=== PATIENT | female | born 1950 | race Caucasian/White ===

== ENCOUNTER → 2018-01-26 | Day surgery (SDC) | payer OTHER ==
--- NOTE | 2018-01-29 23:30 | OP ---
DATE OF OPERATION: 01/26/2018 PREOPERATIVE DIAGNOSIS: Left breast mass, 4 o'clock, 4 cm from the nipple. POSTOPERATIVE DIAGNOSIS: Left breast mass, 4 o'clock, 4 cm from the nipple. PROCEDURE: Left ultrasound guided core biopsy with clip placement. ANESTHESIA: Local. ATTENDING SURGEON: Larry Jean-Baptiste M.D. ESTIMATED BLOOD LOSS: Minimal. COMPLICATIONS: None. DESCRIPTION OF PROCEDURE: Patient was made aware of the risks and benefits of the procedure and consented. She was placed in supine position. Then under sterile conditions with 1% lidocaine for local anesthesia, a small juan carlos was made in the skin; using a 10 gauge suction biopsy device, via lateral approach, under ultrasound guidance multiple cores were obtained and submitted to pathology. Likewise under ultrasound guidance a U-shaped clip was placed into the biopsy region. Well tolerated by the patient. Steri-Strips and a sterile bandage were applied. Will contact her with results. LARRY JEAN-BAPTISTE M.D. [id number]
== END | disposition home or self-care (01) ==
LOC: FRADUS-SUR 12:06
PROVIDERS: ATTEND Surgery Surgical Oncology
PROC: 0HBU3ZX Excision of Left Breast, Percutaneous Approach, Diagnostic (ICD-10-PCS; principal; 2018-01-26)
DX: D48.62 Neoplasm of uncertain behavior of left breast (principal)
CPT/HCPCS: 19083; 87899; 88305-TC; 88342-TC; A4648

== ENCOUNTER 2018-03-06 06:58 | Day surgery (SDC) | payer OTHER ==
[2018-02-26 13:39] VITALS: BMI 33.9
--- NOTE | 2018-02-28 10:53 | HP ---
Admitting History and Physical - Primary Care Physician PCP: Larry Jean-Baptiste - Admission Chief Complaint: Left breast cancer History of Present Illness: 67 year old postmenapausal female who underwent right breast wide excision 2004 for a 1.3 cm ER/ND+ HER2- invasive lobular carcinoma ERBT and arimidex for 7 years. Chek 2 positive, initially was classified as a VUS . mammogram 05/2017 negative. Breast MRI 12/2017 showed 2 suspicious masses left breast lower outer quadrant 3 and 4 mm. seen on US. Left breast US core biopsy 01/2018 at 4:00 showed invasive ductal carcinoma and DCIS ER+/ND+ Her2 -. - Past Medical History Cardiovascular: Yes: HTN, Hyperlipdemia Gastrointestinal: Yes: GERD Psych: Yes: Anxiety - Past Surgical History Past Surgical History: Yes: Cholecystectomy (1970), Joint Replacement (hip replacement 2013) Additional Past Surgical History: right breast wide excision 2004 invsive lobular ca RT and arimidex x 7 yrsLung bx 2010 granulomas discectomy 2012 - Advance Directives Advance Directives: Yes: Living Will, Health Care Proxy - Smoking History Smoking history: Former smoker Have you smoked in the past 12 months: Yes If you are a former smoker, when did you quit?: 2008 - Alcohol/Substance Use Hx Alcohol Use: Yes (SOCIALLY) Home Medications - Allergies Allergies/Adverse Reactions: Allergies Allergy/AdvReac Type Severity Reaction Status Date / Time No Known Drug Allergies Allergy Verified 02/26/18 13:17 - Home Medications Home Medications: Ambulatory Orders Alprazolam [Xanax] 0.5 mg PO DAILY PRN 02/26/18 Metoprolol Succinate [Toprol Xl] 25 mg PO DAILY 02/26/18 Rosuvastatin Calcium [Crestor] 5 mg PO DAILY 02/26/18 Triamterene/Hydrochlorothiazid [Triamterene-Hctz 37.5-25 mg Cp] 1 each PO DAILY 02/26/18 Family Disease History - Family Disease History Family Disease History: CA: Father (prostate ca 65), Mother (breast ca/ pancreatic ca 74 and 85) Other Family History: mat aunt CRC 80 Physical Examination Constitutional: Yes: Well Nourished Breast(s): Yes: Other (Healed incision right breast, diffusely nodular, no palapble masses or adenopathy bilaterally, post bx changes left breast) Assessment/Plan Left breast wide excision , mamogram needle localization, sentenel node biopsy , lymphoscintogram, possible axillary node dissection
[2018-03-06] MEDS ORDERED: ONDANSETRON 4 MG/2 ML VIAL IVPUSH PRN ×2 (12:37→14:55)
[2018-03-06] MEDS ORDERED: LACTATED RINGERS SOLUTION 1,000 ML IV SCH (12:45)
[2018-03-06] MEDS ORDERED: ACETAMINOPHEN 1000 MG/100 ML VIAL (NON FORMULARY) IVPB SCH (12:45)
[2018-03-06] MEDS ORDERED: ISOSULFAN BLUE 10 MG/ML VIAL SQ ONE (13:41)
[2018-03-06] MEDS ORDERED: KETOROLAC TROMETHAMINE 30 MG/1 ML VIAL IVPUSH PRN (14:55)
[2018-03-06] MEDS ORDERED: DEXTROSE 5%-0.45% SALINE 1,000 ML IV SCH (15:00)
[2018-03-06] MEDS ORDERED: PROMETHAZINE HCL 25 MG/1 ML VIAL ONE (15:27)
--- NOTE | 2018-03-06 15:27 | OP ---
Operative Note - Note: Operative Date: 03/06/18 Pre-Operative Diagnosis: Left breast cancer Operation: Left breast reconstruction with local tissue relocation Post-Operative Diagnosis: Same as Pre-op Surgeon: Lukas Gaytan Spice Room Worker: Paresh Hook Anesthesia: General Estimated Blood Loss (mls): 10 Operative Report Dictated: Yes
--- NOTE | 2018-03-06 15:28 | SURG ---
Surgery Radiology Asst Note Radiology Asst: Paresh Hook PA-C Date of Service: 03/06/18 Diagnosis: Left breast cancer Procedure: Left breast reconstruction with local tissue relocation s/p wide excision needle localization I was present for the entirety of the operative procedure. For further detail, please refer to operative report. Visit type - Case Type Case Type: Scheduled - Emergency Emergency Visit: No - New patient This patient is new to me today: Yes Date on this admission: 03/06/18
[2018-03-06] MEDS: PROMETHAZINE HCL 25 MG/1 ML VIAL IVPUSH PRN ×2 (15:30→15:45)
[2018-03-06] MEDS ORDERED: HALOPERIDOL LACTATE 5 MG/ML ONE (16:08)
[2018-03-06] MEDS ORDERED: ACETAMINOPHEN INJECTION 100 ML IVPB ONE (16:22)
[2018-03-06] MEDS ORDERED: HALOPERIDOL LACTATE 5 MG/ML IVPUSH ONE (17:18)
[2018-03-06 18:35] VITALS: BP 105/52; PULSE 84; TEMP 98
--- NOTE | 2018-03-06 19:08 | OP ---
DATE OF OPERATION: 03/06/2018 TITLE OF PROCEDURE: 1. Left-sided partial breast reconstruction with local tissue flaps. 2. A 4-cm complex, left axillary wound closure. PREOPERATIVE DIAGNOSIS: Left-sided breast cancer status post left partial mastectomy and left sentinel lymph node biopsy. POSTOPERATIVE DIAGNOSIS: Left-sided breast cancer status post left partial mastectomy and left sentinel lymph node biopsy. Procedures performed in combination with a left partial mastectomy performed by Dr. Larry Jean-Baptiste. That portion will be dictated separately by Dr. Larry Jean-Baptiste. The patient is marked in the holding area in preparation for a lumpectomy. The lumpectomy markings are made along the same markings that would be used for a modified Ramon-type pattern breast reduction should conversion at this stage or at a later stage be necessary. Patient is awake and aware of all incisions and resulting scars. The patient is brought to the operating room, given 2 g of Ancef, prepped and draped in standard surgical fashion. She is positioned by Dr. Jean-Baptiste and his team. At this point, the left sentinel lymph node biopsy and left partial mastectomy are performed by Dr. Jean-Baptiste, dictated separately by Dr. Jean-Baptiste. I was the corporate administrative assistant for these procedures. At the completion of this, decision is made that the defect left behind by Dr. Jean-Baptiste did not require conversion to a breast reduction pattern, and the defect did, however, undermine inferolaterally under the nipple areola, making a later inferior or lateral pedicle impossible. Any later attempts at mastopexy would require a superior or medial pedicle or superomedial pedicle. The defect if left alone, however, would be deforming, and therefore, parenchymal flap reconstruction is required. Hemostasis meticulously achieved and the wounds are copiously irrigated with normal saline. At this point, the existing defect is clipped in each of its 4 boundaries in case a return to the OR is necessary for further margins. A laterally-based parenchymal flap is then mobilized on a deep and lateral blood supply so as not to further encroach upon the preserved tissue for a medial or superior pedicle. This is able to be mobilized into the wound without distortion of the surrounding breast tissue. This parenchymal flap is secured to the surrounding tissue, leaving the orienting clips in place. This securing is done with a series of interrupted 3-0 Vicryl suture, closing the space. The skin is then slightly undermined laterally to prevent puckering, and the dermis is closed with a series of interrupted, buried, deep dermal 3-0 Monocryl suture, followed by a running subcuticular 3-0 Monocryl suture. Patient is brought to a seated upright position to assure the symmetry of the breast and that there is no significant distortion. These criteria are met. Attention is then directed toward the left axillary wound. Hemostasis is meticulously achieved, followed by closure of the axillary fascia with a series of interrupted 3-0 Vicryl suture. Deep fat is closed, approximating the space with a series of interrupted 3-0 Vicryl suture. The skin is then closed with a series of interrupted, buried, deep dermal 3-0 Monocryl suture, followed by a running subcuticular 3-0 Monocryl suture. All tissues are pink and viable at the end of the procedure. Dressings are applied with Steri-Strips, 4 x 4, and Hypafix gauze. Patient is given a surgical bra, is awoken from anesthesia, transferred to recovery without complication. Rachel [id number]
--- NOTE | 2018-03-06 19:20 | OP ---
DATE OF OPERATION: 03/06/2018 PREOPERATIVE DIAGNOSIS: Left breast cancer. POSTOPERATIVE DIAGNOSIS: Left breast cancer. PROCEDURE: Left breast partial mastectomy with sentinel lymph node biopsy. ANESTHESIA: General intubated. ATTENDING SURGEON: Larry Jean-Baptiste MD ESTIMATED BLOOD LOSS: Minimal. COMPLICATIONS: None. DESCRIPTION OF PROCEDURE: Patient was made aware of the risks and benefits of the procedure and consented. Preoperatively, she went to the radiology suite where a needle was placed next to the index lesion and then to nuclear medicine where radioactive tracer was injected into the peritumoral tissues and skin. She was then placed in the supine position on the operating room table, and after general anesthesia was induced, the patient was intubated. The operative site was prepped and draped in usual sterile fashion. Next, 2.5 mL of 1% isosulfan blue was infiltrated into peritumoral tissues. Waiting approximately 10 minutes with gentle manual compression, a curvilinear incision was made in the left axilla. Using blunt and sharp dissection, tissues were dissected down to the axillary fat where it was identified a cluster of hot lymph nodes which were surgically excised and submitted to pathology. Palpation of the rest of the axilla and interrogation with the Neoprobe showed that there were no other suspicious or hot areas. The breast was then approached. The radial incision was then made using electrocautery. Thick skin flaps were made. The needle was drawn to the puncture site and wire to the wound. Tissues around the wire were then sharply excised and submitted with a short suture superior, long suture lateral. Specimen radiograph confirmed the presence of the index lesion. Additional segments were taken deep anterior, medial, lateral, superior, and inferior with clips and new margins. The wound was copiously irrigated with normal saline. Hemostasis maintained by electrocautery. The procedure was then turned over to Lukas Gaytan MD, the plastic surgeon, for closure of the wounds. He will dictate his portion of the procedure. LARRY JEAN-BAPTISTE M.D. [id number]
--- NOTE | 2018-03-12 13:38 | PATH ---
Surgical Pathology Report Patient Name: TIFFANIE CORTES [facility]. Rec. #: [id number] /Age/Gender: 1950 (Age: 67) / F Account: [id number] Location: [facility] AMBULATORY Taken: 03/06/2018 Received: 03/06/2018 Reported: 03/12/2018 Physicians: Larry Jean-Baptiste M.D. Specimen(s) Received A: LEFT AXILLARY SENTINEL NODE B: LEFT BREAST WIDE EXCISION C: LEFT BREAST SUPERIOR MARGIN D: LEFT BREAST INFERIOR MARGIN E: LEFT BREAST ANTERIOR MARGIN F: LEFT BREAST POSTERIOR MNARGIN G: LEFT BREAST MEDIAL MARGIN H: BREAST LATERAL MARGIN Clinical History Invasive carcinoma Final Diagnosis A. lymph node, left axillary sentinel, excision: Two lymph nodes, negative for metastatic carcinoma (0/2). B. breast, left, wide excision: Invasive ductal carcinoma, well differentiated (tubule score: 1/3, nuclear grade: 2/3, mitotic score 1/3; total score 4/9, Toribio grade 1). Invasive carcinoma measures 4 mm in greatest dimension, microscopically. FOCAL DUCTAL CARCINOMA IN SITU (DCIS), CRIBRIFORM TYPE, LOW NUCLEAR GRADE. Invasive carcinoma is focally close to (< 1 MM) THE SUPERIOR MARGIN AND AT 1 MM FROM THE DEEP MARGIN; DCIS IS AT 2 MM FROM THE DEEP MARGIN. SEE SPECIMENS C-H FOR FINAL MARGINS. NO LYMPHOVASCULAR INVASION IS IDENTIFIED. REMAINING BREAST TISSUE SHOWS ATYPICAL DUCTAL HYPERPLASIA (ADH), FLAT EPITHELIAL ATYPIA (FEA) AND FIBROCYSTIC CHANGES. PRIOR BIOPSY SITE CHANGES ARE PRESENT. PATHOLOGIC STAGE (pTNM): pT1a pN0. SEE ALSO INVASIVE CARCINOMA CASE SUMMARY BELOW. C. breast, left, superior margin, excision: Benign breast tissue. D. breast, left, inferior margin, excision: Ductal carcinoma in situ (DCIS), solid type, low NUCLEAR grade, focally at 1 mm from the new margin. DCIS is present in one oF tHREE slides (1/3). E. breast, left, anterior margin, excision: Benign breast tissue. F. breast, left, posterior margin excision: Right breast tissue. G. breast, left, medial margin, excision: dcis, MICROPAPILLARY TYPE, LOW NUCLEAR, PRESENT IN ONE OF FOUR SLIDES (1/4). DCIS IS FOCALLY CLOSE TO (<1 MM) the NEW MARGIN. H. breast, left, lateral margin, excision: Benign breast tissue. Comments Breast Invasive Carcinoma: Surgical Pathology Case Summary (Based on AJCC TNM 8 th edition) Procedure _X_ Excision (less than total mastectomy) Specimen Laterality _X_ Left Tumor Size _X_ Greatest dimension of largest invasive focus >1 mm (millimeters): 4 mm Histologic Type _X_ Invasive carcinoma of no special type (ductal, not otherwise specified) Histologic Grade (Toribio Histologic Score) Glandular (Acinar)/Tubular Differentiation _X_ Score 1 (>75% of tumor area forming glandular/tubular structures) Nuclear Pleomorphism _X_ Score 2 Mitotic Rate _X_ Score 1 Overall Grade _X_ Grade 1 (scores of 3, 4, or 5) Tumor Focality _X_ Single focus of invasive carcinoma Ductal Carcinoma In Situ (DCIS) _X_ DCIS is present in specimen _X_ Negative for extensive intraductal component (EIC) Margins Invasive Carcinoma Margins _X_ Uninvolved by invasive carcinoma Distance from closest margin (millimeters): < 1 mm from superior margin in wide excision B; final superior margin C is negative for carcinoma. DCIS Margins _X_ Uninvolved by DCIS Distance from closest margin (millimeters): focally < 1 mm from final medial margin G. Regional Lymph Nodes Number of Lymph Nodes with Macrometastases (>2 mm): 0 Number of Lymph Nodes with Micrometastases (>0.2 mm to 2 mm and/or >200 cells):0 Number of Lymph Nodes with Isolated Tumor Cells (=0.2 mm and =200 cells): 0 Number of Lymph Nodes Examined: 2 Number of [place] Nodes Examined :2 Treatment Effect _X_ No known presurgical therapy Lymphovascular Invasion _X_ Not identified Pathologic Stage Classification (pTNM, AJCC 8th Edition) Primary Tumor (Invasive Carcinoma) (pT) _X_ pT1a: Tumor >1 mm but =5 mm in greatest dimension (round any measurement >1.0-1.9mm to 2 mm) Regional Lymph Nodes (pN) Category (pN) _X_ pN0 (i+): ITCs only (malignant cell clusters no larger than 0.2 mm) in regional lymph node(s) Biomarker Studies Results of ER and UT studies performed on prior biopsy ([id number]) at [facility] are as follows: ER (clone [id number] mouse monoclonal antibody by [employer]): 100 % nuclear staining with strong intensity (Positive). UT (clone16 mouse monoclonal antibody by [employer]): > 90 % nuclear staining with strong intensity (Positive). Results of Her2 (IHC) & Ki-67 studies performed on prior biopsy ([id number]) at [place], [place] ([id number]) are as follows: Her2 IHC (EP3 from [employer], formerly known as [id number], using [employer] Polymer Refine detection kit):0 Ki67: < 5% (Low proliferative index). Electronically Signed Clarissa Delatorre M.D. Gross Description A. Received in formalin labeled "left axillary sentinel lymph node," are 2 lane lymph nodes measuring 1.6 and 2.4 cm in greatest dimension. Each lymph node is bisected and the specimen is entirely submitted in 3 cassettes as follows: 1-one bisected lymph node; 2-3-one bisected lymph node. B. Received in formalin, labeled "left breast wide excision," is a 4.2 x 3.0 [address] 2[address] lane-yellow, irregular, portion of fibroadipose tissue with a needle localization wire present. There is a short suture marking the superior aspect and a long suture marking the lateral aspect, per the surgeon. There is no skin present. The specimen is inked as follows: superior and lateral blue; inferior green; medial yellow; anterior red; posterior black. The specimen is serially sectioned from medial to lateral. Sectioning reveals a 0.6 x 0.6 x 0.5 cm ill-defined, indurated mass abutting the superior margin. The mass is 0.6 cm from the anterior margin. Hand Zipper Trimmer sections are submitted in 6 cassettes as follows: [id number] and sequentially submitted mass (each with superior, anterior and posterior margins); 4-inferior margin; 5-medial margin; 6-lateral margin. Time to formalin fixation: 17 minutes Total formalin fixation time: Approximately 27 hours. C. Received in formalin labeled "left breast superior margin," is a 3.5 x 1.9 x 1.0 cm portion of fibroadipose tissue with an undesignated clip presumably marking the new margin. The presumed new margin is inked blue and the specimen is serially sectioned. The specimen is entirely submitted in 3 cassettes. D. Received in formalin labeled "left breast inferior margin," is a 2.8 x 2.5 x 0.9 cm portion of fibroadipose tissue with an undesignated clip presumably marking the new margin. The presumed new margin is inked blue and the specimen is serially sectioned. The specimen is entirely submitted in 3 cassettes. E. Received in formalin labeled "left breast anterior margin," is a 1.8 x 1.8 x 0.5 cm portion of fibroadipose tissue with an undesignated clip presumably marking the new margin. The presumed new margin is inked blue and the specimen is serially sectioned. The specimen is entirely submitted in 3 cassettes. F. Received in formalin labeled "left breast posterior margin," is a 4.0 x 3.3 x 1.6 cm portion of fibroadipose tissue with an undesignated clip presumably marking the new margin. The presumed new margin is inked blue and the specimen is serially sectioned. The specimen is entirely submitted in 7 cassettes. G. Received in formalin labeled "left breast medial margin," is a 3.3 x 2.3 x 0.8 cm portion of fibroadipose tissue with an undesignated clip presumably marking the new margin. The presumed new margin is inked blue and the specimen is serially sectioned. The specimen is entirely submitted in 4 cassettes. H. Received in formalin labeled "left breast lateral margin," is a 3.5 x 2.5 x 0.6 cm portion of fibroadipose tissue with an undesignated clip presumably marking the new margin. The presumed new margin is inked blue and the specimen is serially sectioned. The specimen is entirely submitted in 3 cassettes. DL03/07/2018 saudi03/07/2018
== END 2018-03-06 18:38 | disposition home or self-care (01) ==
LOC: FASU 06:58
PROVIDERS: ATTEND Surgery Surgical Oncology
PROC: 0HBU0ZZ Excision of Left Breast, Open Approach (ICD-10-PCS; principal; 2018-03-06 14:01)
PROC: 0HRU07Z Replacement of Left Breast with Autologous Tissue Substitute, Open Approach (ICD-10-PCS; 2018-03-06 14:01)
DX: C50.812 Malignant neoplasm of overlapping sites of left female breast (principal); N64.9 Disorder of breast, unspecified
CPT/HCPCS: 19281; 78195-TC; 88307-TC; 94760; A9541; J0131

== ENCOUNTER 2018-03-27 11:50 | Day surgery (SDC) | payer OTHER ==
[2018-03-20 13:00] VITALS: BMI 33.9
--- NOTE | 2018-03-22 09:03 | HP ---
Admitting History and Physical - Primary Care Physician PCP: Larry Jean-Baptiste - Admission Chief Complaint: Left breast cancer History of Present Illness: 67 year old with H/O right wide excision 2004 for invasive lobular carcinoma EBRT and arimidex for 7 years. She also is S/P laparoscopic colectomy for early stage colon cancer CHEK2 mutation who recently underwentLeft breast wide excision on 03/06/2018 for a 4mm Invasive ductal carcinoma with close inferior and medial margins. negative sentenel node biopsy. Her for left breast reexcision. History Source: Patient Limitations to Obtaining History: No Limitations - Past Medical History Cardiovascular: Yes: HTN, Hyperlipdemia Gastrointestinal: Yes: GERD Psych: Yes: Anxiety - Past Surgical History Past Surgical History: Yes: Cholecystectomy (1970), Colectomy (lap colectomy for early stage colon cancer Right breast wide excision invasive lobular ca lung bx garnuloma), Joint Replacement (hip replacement 2013) - Smoking History Smoking history: Former smoker Have you smoked in the past 12 months: Yes If you are a former smoker, when did you quit?: 2007 - Alcohol/Substance Use Hx Alcohol Use: Yes (SOCIALLY) Home Medications - Allergies Allergies/Adverse Reactions: Allergies Allergy/AdvReac Type Severity Reaction Status Date / Time No Known Drug Allergies Allergy Verified 03/20/18 12:53 - Home Medications Home Medications: Ambulatory Orders Alprazolam [Xanax] 0.5 mg PO DAILY PRN 02/26/18 Metoprolol Succinate [Toprol Xl] 25 mg PO DAILY 02/26/18 Rosuvastatin Calcium [Crestor] 5 mg PO DAILY 02/26/18 Triamterene/Hydrochlorothiazid [Triamterene-Hctz 37.5-25 mg Cp] 1 each PO DAILY 02/26/18 Oxycodone HCl/Acetaminophen [Percocet 5-325 mg Tablet -] 1 - 2 tab PO Q6H #20 tablet MDD 6 03/06/18 Family Disease History - Family Disease History Family Disease History: CA: Father (prostate ca 65), Mother (breast ca/ pancreatic ca 74 and 85) Other Family History: mat aunt CRC 80 Physical Examination Constitutional: Yes: Well Nourished Breast(s): Yes: Other (Left breat healing well incicion intact no signs of infection) Problem List - Problems (1) Breast cancer, left breast Code(s): C50.912 - MALIGNANT NEOPLASM OF UNSPECIFIED SITE OF LEFT FEMALE BREAST Qualifiers: Breast location: lower outer quadrant of breast Estrogen receptor status: positive Patient sex: female Qualified Code(s): C50.512 - Malignant neoplasm of lower-outer quadrant of left female breast; Z17.0 - Estrogen receptor positive status [ER+] Assessment/Plan Left breast re excision for positive margins
[2018-03-27] MEDS ORDERED: LIDOCAINE HCL 1%, 10 MG/ML (20ML VIAL) ONE (14:25)
[2018-03-27] MEDS ORDERED: ONDANSETRON 4 MG/2 ML VIAL IVPUSH PRN ×2 (17:02→18:20)
[2018-03-27] MEDS ORDERED: KETOROLAC TROMETHAMINE 30 MG/1 ML VIAL IVPUSH PRN (17:02)
[2018-03-27] MEDS ORDERED: PROPOFOL 20 ML ONE ×6 (17:15→17:19)
[2018-03-27] MEDS ORDERED: MIDAZOLAM HCL 2 MG/2 ML SINGLE DOSE VIAL ONE (17:15)
[2018-03-27] MEDS ORDERED: DEXTROSE 5%-0.45% SALINE 1,000 ML IV SCH (17:15)
[2018-03-27] MEDS ORDERED: SUCCINYLCHOLINE CHLORIDE 200 MG/10 ML VIAL ONE (17:15)
[2018-03-27] MEDS ORDERED: ePHEDrine SULFATE 50 MG/1 ML AMPULE ONE (17:20)
[2018-03-27] MEDS ORDERED: oxyCODONE HCL 5 MG TABLET PO PRN ×2 (18:20)
[2018-03-27] MEDS ORDERED: ACETAMINOPHEN 325 MG TABLET (FP) PO PRN (18:20)
[2018-03-27] MEDS ORDERED: PROMETHAZINE HCL 25 MG/1 ML VIAL IVPB PRN (18:20)
[2018-03-27] MEDS ORDERED: ACETAMINOPHEN 325 MG TABLET (FP) PO ONE (18:30)
--- NOTE | 2018-03-27 19:14 | OP ---
DATE OF OPERATION: 03/27/2018 PREOPERATIVE DIAGNOSIS: Left breast cancer with positive/close inferior and medial margin. POSTOPERATIVE DIAGNOSIS: Left breast cancer with positive/close inferior and medial margin. PROCEDURE: Left breast reexcision. ANESTHESIA: General intubated. ATTENDING SURGEON: Larry Jean-Baptiste M.D. FURNACE MECHANIC HELPER: Uriel Carpenter ESTIMATED BLOOD LOSS: Minimal. COMPLICATIONS: None. DESCRIPTION OF PROCEDURE: Patient was made aware of the risks and benefits of the procedure and consented. She was placed in a supine position. After general anesthesia was induced, the patient was intubated. The operative site was prepped and draped in the usual sterile fashion. A prior incision was opened up, releasing the prior sutures revealing an inflammatory seroma cavity in the inferior wall was grasped and sharply excised a 2-cm thick wall and a clip was applied to the new margin, and the specimen was submitted as inferior segment the clip at the new margin. Likewise, medially, a piece of the wall was grasped and sharply excised and submitted as medial segment with the clip at the new margin. Wound was copiously irrigated with normal saline, hemostasis maintained by electrocautery. The wound was then closed with deep 2-0 Vicryl [id number] sutures as well as interrupted 3-0 Vicryl followed by running subcuticular 4-0 Monocryl. Steri-Strips, sterile dressing, and a compression bra were then applied, and the patient having tolerated the procedure well was transferred to the recovery room in excellent condition. LARRY JEAN-BAPTISTE M.D. AUGUSTIN/[id number]
[2018-03-27 19:48] VITALS: BP 120/70; PULSE 76; TEMP 97.9
--- NOTE | 2018-04-03 11:56 | PATH ---
Surgical Pathology Report Patient Name: TIFFANIE CORTES [facility]. Rec. #: [id number] /Age/Gender: 1950 (Age: 67) / F Account: [id number] Location: [facility] AMBULATORY Taken: 03/27/2018 Received: 03/27/2018 Reported: 04/03/2018 Physicians: Larry Jean-Baptiste M.D. Specimen(s) Received A: LEFT BREAST MEDIAL SEGMENT B: LEFT BREAST INFERIOR SEGMENT Clinical History DCIS, invasive Ca Final Diagnosis A. BREAST, LEFT, MEDIAL SEGMENT, EXCISION: RESIDUAL DUCTAL CARCINOMA IN SITU (DCIS), MICROPAPILLARY AND SOLID TYPE, LOW NUCLEAR GRADE, PRESENT IN FIVE OF NINE SLIDES (5/9). THE NEW MARGIN IS UNINVOLVED BY DCIS; DCIS IS AT 1 MM FROM THE CLOSEST NEW MARGIN AT A FEW FOCI. PRIOR BIOPSY SITE CHANGES ARE PRESENT. B. BREAST, LEFT, INFERIOR SEGMENT, EXCISION: BENIGN BREAST TISSUE SHOWING PRIOR BIOPSY SITE CHANGES. NO RESIDUAL DCIS IS IDENTIFIED. Electronically Signed Clarissa Delatorre M.D. Gross Description A. Received in formalin labeled "left breast medial segment," is a 4.0 x 3.7 x 1.4 cm portion of fibroadipose tissue with a clip marking the new margin, per the surgeon. The new margin is inked blue and the specimen is serially sectioned. The specimen is entirely and sequentially submitted in 9 cassettes. B. Received in formalin labeled "left breast inferior segment," is a 4.3 x 3.5 x 1.5 cm portion of fibroadipose tissue with a clip marking the new margin, per the surgeon. The new margin is inked blue and the specimen is serially sectioned. The specimen is entirely and sequentially submitted 10 cassettes. Time to formalin fixation: 10 minutes Total formalin fixation time: Approximately 24 hours. 03/28/201803/28/2018
== END 2018-03-27 19:48 | disposition home or self-care (01) ==
LOC: FASU 11:50
PROVIDERS: ATTEND Surgery Surgical Oncology
PROC: 0HBU0ZZ Excision of Left Breast, Open Approach (ICD-10-PCS; principal; 2018-03-27 17:34)
DX: C50.512 Malignant neoplasm of lower-outer quadrant of left female breast (principal); Z17.0 Estrogen receptor positive status [ER+]; I10 Essential (primary) hypertension; E78.5 Hyperlipidemia, unspecified; K21.9 Gastro-esophageal reflux disease without esophagitis; F41.9 Anxiety disorder, unspecified; Z87.891 Personal history of nicotine dependence; Z80.3 Family history of malignant neoplasm of breast
CPT/HCPCS: 88307-TC; 94760

== ENCOUNTER 2018-05-22 06:54 | Day surgery (SDC) | payer OTHER ==
[2018-05-10 17:03] VITALS: BMI 32.8
--- NOTE | 2018-05-18 09:48 | HP ---
Admitting History and Physical - Primary Care Physician PCP: Larry Jean-Baptiste - Admission Chief Complaint: left breast cancer History of Present Illness: Patient is a 67 yo female S/P left breast WE snbx 03/06/2018 and left re- excision of positive margins on 03/27/2019. The final path of the reexcision was c/w residual DCIS and a new medial margin with DCIS at 1 mm from the closest new margin. The patient is now presenting for left re excision of positive medial margin. History Source: Patient Limitations to Obtaining History: No Limitations - Past Medical History Cardiovascular: Yes: HTN, Hyperlipdemia Gastrointestinal: Yes: GERD Psych: Yes: Anxiety - Past Surgical History Past Surgical History: Yes: Breast Biopsy (Left WE with snbx 03/06/2018 Left reexcision of positive margin 03/27/2018), Cholecystectomy (1970), Colectomy ( lap colectomy for early stage colon cancer Right breast wide excision invasive lobular ca lung bx garnuloma), Joint Replacement (hip replacement 2013) - Smoking History Smoking history: Former smoker Have you smoked in the past 12 months: Yes If you are a former smoker, when did you quit?: 2008 - Alcohol/Substance Use Hx Alcohol Use: Yes (SOCIALLY) Home Medications - Allergies Allergies/Adverse Reactions: Allergies Allergy/AdvReac Type Severity Reaction Status Date / Time No Known Drug Allergies Allergy Verified 03/27/18 12:19 - Home Medications Home Medications: Ambulatory Orders Alprazolam [Xanax] 0.5 mg PO DAILY PRN 02/26/18 Metoprolol Succinate [Toprol Xl] 25 mg PO DAILY 02/26/18 Rosuvastatin Calcium [Crestor] 5 mg PO DAILY 02/26/18 Triamterene/Hydrochlorothiazid [Triamterene-Hctz 37.5-25 mg Cp] 1 each PO DAILY 02/26/18 Acetaminophen [Tylenol] 650 mg PO TID PRN #30 tablet 03/27/18 Cholecalciferol (Vitamin D3) [Vitamin D] 2,000 unit PO DAILY 05/10/18 Lactobacillus Combination No.4 [Probiotic] 1 each PO DAILY 05/10/18 Family Disease History - Family Disease History Family Disease History: CA: Father (prostate ca 65), Mother (breast ca/ pancreatic ca 74 and 85) Review of Systems - Review of Systems Constitutional: reports: No Symptoms Cardiovascular: reports: No Symptoms Respiratory: reports: No Symptoms Physical Examination Constitutional: Yes: Well Nourished, Calm Breast(s): Yes: Other (Left breast with incision that is healing without erythema or discharge. No other suspicious masses or adenopathy noted.) Problem List - Problems (1) Breast cancer, left breast Code(s): C50.912 - MALIGNANT NEOPLASM OF UNSPECIFIED SITE OF LEFT FEMALE BREAST Qualifiers: Breast location: lower outer quadrant of breast Estrogen receptor status: positive Patient sex: female Qualified Code(s): C50.512 - Malignant neoplasm of lower-outer quadrant of left female breast; Z17.0 - Estrogen receptor positive status [ER+] Assessment/Plan Left breast reexcision of positive margin
[2018-05-22] MEDS ORDERED: ceFAZolin SODIUM 1 GM VIAL ONE (07:17)
[2018-05-22] MEDS ORDERED: SODIUM CHLORIDE 0.9% P/F 10 ML VIAL IJ ONE (07:17)
[2018-05-22] MEDS ORDERED: ONDANSETRON 4 MG/2 ML VIAL ONE (07:17)
[2018-05-22] MEDS ORDERED: LIDOCAINE HCL/PF 2% SDV 5ML VIAL ONE ×2 (07:17→07:22)
[2018-05-22] MEDS ORDERED: DEXAMETHASONE SOD PHOSPHATE 4 MG/1 ML VIAL ONE (07:17)
[2018-05-22] MEDS ORDERED: MIDAZOLAM HCL 2 MG/2 ML SINGLE DOSE VIAL ONE (07:18)
[2018-05-22] MEDS ORDERED: LIDOCAINE HCL 1% PRESERVATIVE FREE - 30ML VIAL ONE (07:18)
[2018-05-22] MEDS ORDERED: SUCCINYLCHOLINE CHLORIDE 200 MG/10 ML VIAL ONE (07:18)
[2018-05-22] MEDS ORDERED: PROPOFOL 20 ML ONE ×2 (07:18→09:21)
[2018-05-22] MEDS ORDERED: BUPIVACAINE HCL/PF 2.5 MG/ML - 30 ML VIAL IJ ONE (07:18)
[2018-05-22] MEDS ORDERED: DEXMEDETOMIDINE HCL 200 MCG/2 ML ML IVPB ONE (07:33)
[2018-05-22] MEDS ORDERED: ONDANSETRON 4 MG/2 ML VIAL IVPUSH PRN ×2 (08:52→12:37)
[2018-05-22] MEDS ORDERED: KETOROLAC TROMETHAMINE 30 MG/1 ML VIAL IVPUSH PRN (08:52)
[2018-05-22] MEDS ORDERED: DEXTROSE 5%-0.45% SALINE 1,000 ML IV SCH (09:00)
[2018-05-22] MEDS ORDERED: ePHEDrine SULFATE 50 MG/1 ML AMPULE ONE (09:12)
[2018-05-22] MEDS ORDERED: BUPIVACAINE HCL/PF 0.25% (2.5MG/ML) 10 ML VIAL IJ ONE (09:43)
[2018-05-22] MEDS: PROMETHAZINE HCL 25 MG/1 ML VIAL ONE ×2 (10:05→10:30)
[2018-05-22 12:13] VITALS: BP 109/69; PULSE 77; TEMP 97.7
[2018-05-22] MEDS ORDERED: PROMETHAZINE HCL 25 MG/1 ML VIAL IVPUSH ONE (12:38)
[2018-05-22] MEDS ORDERED: LACTATED RINGERS SOLUTION 1,000 ML IV SCH (12:45)
--- NOTE | 2018-05-22 16:12 | OP ---
DATE OF OPERATION: 05/22/2018 PREOPERATIVE DIAGNOSIS: Left breast cancer with positive medial margin. POSTOPERATIVE DIAGNOSIS: Left breast cancer with positive medial margin. PROCEDURE: Left breast re-wide excision. ANESTHESIA: General, intubated. ATTENDING SURGEON: Bertin Jean-Baptiste MD PIN FEATHER MACHINE OPERATOR: KASEY Carpenter ESTIMATED BLOOD LOSS: Minimal. COMPLICATIONS: None. PROCEDURE: Patient was made aware of the risks and benefits of the procedure and consented. She was placed in a supine position. After general anesthesia was induced, the patient was intubated. The operative site was then prepped and draped in usual sterile fashion. The prior incision was opened up and using electrocautery dissected down to the prior cavity. The medial wall of the cavity was widely excised with at least a 3 cm depth using sharp dissection and was submitted to Pathology with multiple clips outlining the medial wall. The wound was copiously irrigated with normal saline. Hemostasis was maintained by electrocautery. The wound was then closed with deep sutures of 2-0 Vicryl, followed by 3-0 Vicryl, followed by a running subcuticular 4-0 Monocryl. Steri-Strips, sterile dressing, and a compression bra were then applied. The patient tolerated the procedure and was transferred to recovery in excellent condition. BERTIN JEAN-BAPTISTE M.D. [id number]
--- NOTE | 2018-05-28 10:02 | PATH ---
Surgical Pathology Report Patient Name: TIFFANIE CORTES Med. Rec. #: [id number] /Age/Gender: 1950 (Age: 67) / F Account: [id number] Location: [facility] Taken: 05/22/2018 Received: 05/22/2018 Reported: 05/28/2018 Physicians: Larry Jean-Baptiste M.D. Specimen(s) Received LEFT BREAST MEDIAL SEGMENT Clinical History Invasive; prior positive medial margin Final Diagnosis BREAST, LEFT, MEDIAL SEGMENT, EXCISION: BENIGN BREAST PARENCHYMA WITH CHANGES OF PRIOR BIOPSY. Electronically Signed Dee Dee Mcclure M.D. Gross Description Received in formalin labeled "left breast medial segment," is a 5.7 x 5.3 x 2.4 cm irregular portion of fibroadipose tissue with multiple clips marking the new medial margin, per the surgeon. The new margin is inked blue and the specimen is serially sectioned. The specimen is entirely submitted in 21 cassettes. Time to formalin fixation: 5 minutes Total formalin fixation time: Approximately 30 hours. /05/23/2018 saudi05/23/2018
== END 2018-05-22 12:00 | disposition home or self-care (01) ==
LOC: FASU 06:54
PROVIDERS: ATTEND Surgery Surgical Oncology
PROC: 0HBU0ZZ Excision of Left Breast, Open Approach (ICD-10-PCS; principal; 2018-05-22 08:30)
DX: C50.512 Malignant neoplasm of lower-outer quadrant of left female breast (principal); Z17.0 Estrogen receptor positive status [ER+]; I10 Essential (primary) hypertension; E78.5 Hyperlipidemia, unspecified; K21.9 Gastro-esophageal reflux disease without esophagitis; F41.9 Anxiety disorder, unspecified
CPT/HCPCS: 88307-TC; 94760